=== PATIENT | male | born 1985 | race Caucasian/White ===

== ENCOUNTER 2021-05-19 06:29 | Emergency (ER) | payer MEDICAID ==
[~2021-05-19] VITALS: Ht 167.6 cm; Wt 68.0 kg
[2021-05-19 06:38] VITALS: BP_SYST 105
[2021-05-19 06:55] LABS: BILIRUBIN,URINE NEGATIVE (NEGATIVE); BLOOD, URINE 1+ (NEGATIVE); COLOR,URINE YELLOW (YELLOW); GLUCOSE,URINE NEGATIVE (NEGATIVE); KETONES,URINE NEGATIVE (NEGATIVE); LEUKOCYTE ESTERASE ,URINE 1+ (NEGATIVE); NITRITE, URINE NEGATIVE (NEGATIVE); PH,URINE 6.5 (5.0-8.0); PROTEIN URINE NEGATIVE (NEGATIVE); UROBILINOGEN,URINE 0.2 (0.2-1.0)
[2021-05-19 07:02] LABS: BASOPHILS # (AUTO) 0.1 K/uL (0.0-0.2); EOSINOPHILS # (AUTO) 0.3 K/uL (0.0-0.4); HEMOGLOBIN 14.5 g/dL (14.0-18.0); LYMPHOCYTES # (AUTO) 1.5 K/uL (1.0-5.5); MEAN CORPUSCULAR HEMOGLOBIN 30 pg (27-31); MEAN CORPUSCULAR HGB CONC 35 % (32-36); MEAN CORPUSCULAR VOLUME 85 fL (79.0-98.0); MONOCYTES # (AUTO) 0.7 K/uL (0.0-1.0); MONOCYTES % (AUTO) 13.3 % (1.7-9.3); NEUTROPHILS # (AUTO) 2.8 K/uL (1.8-7.7); NEUTROPHILS % (AUTO) 52.7 % (40.0-70.0); PLATELET COUNT (AUTO) 251 K/uL (130-430); RED BLOOD CELL COUNT(AUTO) 4.92 MIL/uL (4.2-6.2); RED CELL DISTRIBUTION WIDTH 13.3 % (9.0-15.0); WHITE BLOOD COUNT (AUTO) 5.3 K/uL (4.8-10.8)
[2021-05-19 07:03] LABS: CLARITY/URINE SLIGHTLY CLOUDY (CLEAR)
[2021-05-19 07:06] LABS: CREATININE 1.01 mg/dL (0.55-1.30); POTASSIUM 3.6 mmol/L (3.5-5.1)
[2021-05-19 07:08] LABS: BACTERIA,URINE FEW /HPF (None Seen); MUCUS,URINE 1+ /LPF (None Seen)
[2021-05-19 07:11] LABS: ALBUMIN 3.6 g/dL (3.4-4.8); TOTAL BILIRUBIN 0.3 mg/dL (0.0-1.0)
[2021-05-19] MEDS ORDERED: DIPHENHYDRAMINE INJ 50 MG/ML VIAL IVP ONE (07:15)
[2021-05-19] MEDS ORDERED: NACL 0.9% 1,000 ML IV ONE (07:15)
[2021-05-19] MEDS ORDERED: MORPHINE 4 MG INJ. 4 MG/ML VIAL IVP ONE (07:15)
[2021-05-19] MEDS ORDERED: ONDANSETRON HCL 4 MG/2 ML VIAL IVP ONE (08:00)
[2021-05-19] MEDS ORDERED: fentaNYL CITRATE/PF 100 MCG/2 ML AMP IVP ONE ×2 (08:00→09:00)
[2021-05-19 16:03] VITALS: BP_SYST 132
== END 2021-05-19 16:03 | disposition home or self-care (01) ==
LOC: SED 06:29
DX: R10.11 Right upper quadrant pain (principal); R07.89 Other chest pain
CPT/HCPCS: 36415; 71045; 74177; 76376; 76700; 80053; 81000; 83690; 85025; 87086; 96361; 96374; 96375; 99285; J1200; J2270; J7030; Q9967

== ENCOUNTER 2021-05-22 09:41 | Emergency (ER) | payer MEDICAID ==
[~2021-05-22] VITALS: Ht 167.6 cm; Wt 68.0 kg
[2021-05-22 09:41] VITALS: BP_SYST 146
--- NOTE | 2021-05-22 09:41 | NUR ---
BROUGHT BACK TO BED #5 AND TRIAGED. REPORT GIVEN TO GARRETT
--- NOTE | 2021-05-22 09:48 | NUR ---
PT STATES HE WAS HERE 3 DAYS AGO WITH RIB PAIN, GIVEN NORCO AND IBUPROFEN, NOW WITH 2 DAYS OF RIGHT SIDED TORSO RASH. INCREASED IN PAIN, NORCO NOT HELPING.
--- NOTE | 2021-05-22 09:50 | NUR ---
DR MCGEE AT BEDSIDE FOR EVALUATION
--- NOTE | 2021-05-22 10:02 | NUR ---
35 years old male with shingles, c/o pain, skin red with blisters.
[2021-05-22] MEDS ORDERED: MORPHINE 4 MG INJ. 4 MG/ML VIAL IM ONE (10:15)
[2021-05-22] MEDS ORDERED: PRED20TA PO (10:17)
[2021-05-22] MEDS ORDERED: VALA500T PO (10:17)
[2021-05-22] MEDS ORDERED: OXYC-128 PO (10:17)
[2021-05-22 10:24] VITALS: BP_SYST 130
--- NOTE | 2021-05-22 10:26 | NUR ---
Patient given written and verbal discharge instructions and verbalizes understanding. ER MD discussed with patient the results and treatment provided. Patient in stable condition. ID arm band removed Rx of given. Patient educated on pain management and to follow up with PMD. Pain Scale . Opportunity for questions provided and answered. Medication side effect fact sheet provided.
== END 2021-05-22 10:26 | disposition home or self-care (01) ==
LOC: SED 09:41
DX: B02.9 Zoster without complications (principal); Z79.899 Other long term (current) drug therapy
CPT/HCPCS: 96372; 99283; J2270

== ENCOUNTER 2021-06-03 10:56 | Emergency (ER) | payer MEDICAID ==
[~2021-06-03] VITALS: Ht 167.6 cm; Wt 72.6 kg
[2021-06-03 10:56] VITALS: BP_SYST 127
[~2021-06-03 10:56] MED LIST: OXYC-128 PO; PRED20TA PO; VALA500T PO
--- NOTE | 2021-06-03 10:58 | NUR ---
BROUGHT BACK TO BED #4 AND TRIAGED. REPORT GIVEN TO TANVIR
--- NOTE | 2021-06-03 11:23 | NUR ---
Dr. Franco at bedside for evaluation.
--- NOTE | 2021-06-03 11:24 | NUR ---
patient aaox4 and ambulatory c/o pain d/t being diagnosed with shingles. was taking oxy for pain and ran out of meds. denies any SOB or CP. VSS.
[2021-06-03] MEDS ORDERED: PERC10 PO (11:53)
[2021-06-03] MEDS ORDERED: PRED20TA PO (11:57)
[2021-06-03 12:11] VITALS: BP_SYST 127
--- NOTE | 2021-06-03 12:11 | NUR ---
Patient given written and verbal discharge instructions and verbalizes understanding. ER MD discussed with patient the results and treatment provided. Patient in stable condition. ID arm band removed Rx of PERCOCET, PREDNISONE given. Patient educated on pain management and to follow up with PMD. Pain Scale 2/10. Opportunity for questions provided and answered. Medication side effect fact sheet provided.
== END 2021-06-03 12:11 | disposition home or self-care (01) ==
LOC: SED 10:56
DX: B02.9 Zoster without complications (principal); R07.89 Other chest pain; R03.0 Elevated blood-pressure reading, without diagnosis of hypertension; Z79.899 Other long term (current) drug therapy
CPT/HCPCS: 99283

== ENCOUNTER 2021-06-16 01:10 | Emergency (ER) | payer MEDICAID ==
[~2021-06-16] VITALS: Ht 167.6 cm; Wt 74.8 kg
[~2021-06-16 01:10] MED LIST changes: +PERC10 PO
[2021-06-16 01:20] VITALS: BP_SYST 147
--- NOTE | 2021-06-16 01:20 | NUR ---
Patient triaged and placed in waiting room. VSS and patient appears in no acute distress at this time. Awaiting available bed, and MD notified of need for MSE.
--- NOTE | 2021-06-16 01:57 | NUR ---
ER examining patient in the triage room.
[2021-06-16] MEDS ORDERED: traMADol HCL HCL 50 MG TABLET (ULTRAM) ONE (02:52)
[2021-06-16] MEDS ORDERED: DIPHENHYDRAMINE HCL 25 MG CAPSULE PO ONE (03:00)
[2021-06-16] MEDS ORDERED: traMADol HCL HCL 50 MG TABLET (ULTRAM) PO ONE (03:00)
--- NOTE | 2021-06-16 03:01 | NUR ---
Patient given written and verbal discharge instructions and verbalizes understanding. ER MD discussed with patient the results and treatment provided. Patient in stable condition. ID arm band removed. Rx of [place] given. Patient educated on pain management and to follow up with PMD. Pain Scale 7/10. Opportunity for questions provided and answered. Medication side effect fact sheet provided.
[2021-06-16 03:03] VITALS: BP_SYST 142
== END 2021-06-16 03:03 | disposition home or self-care (01) ==
LOC: SED 01:10
DX: B02.29 Other postherpetic nervous system involvement (principal); B02.9 Zoster without complications
CPT/HCPCS: 99283; Q0163